=== PATIENT | female | born 2000 | race Caucasian/White ===

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

== ENCOUNTER 2019-04-01 23:43 | Inpatient (IN) | payer OTHER ==
[2019-04-02] MEDS: SOD CHLORIDE 0.9% 1,000 ML IV (01:20)
[2019-04-02] MEDS: ONDANSETRON 4 MG INJ IV ×2 (01:20→14:37)
[2019-04-02] MEDS: LACTATED RINGER'S 690 ML IV (01:54)
[2019-04-02] MEDS ORDERED: DEXTROSE 50% 50 ML SYRINGE IV ×6 (02:00→18:30)
[2019-04-02] MEDS: NS + KCL 30 MEQ 1,000 ML IV (02:52)
[2019-04-02] MEDS: INSULIN REGULAR, HUMAN 100 UNIT in SOD CHLORIDE 0.9% 100 ML IV ×2 (02:52→14:55)
[2019-04-02] MEDS ORDERED: SOD CHLORIDE 0.9% 1,000 ML IV (03:00)
[2019-04-02] MEDS ORDERED: D10/0.45% NACL + KCL 40 MEQ 1,000 ML IV (03:00)
[2019-04-02] MEDS ORDERED: MAGNESIUM SULFATE 1 GM/D5W 100 ML IVPB (03:00)
[2019-04-02] MEDS: ACCU-CHEK XX ×17 (03:00→18:00)
[2019-04-02] MEDS ORDERED: DEXTROSE 10%/0.45% NACL 1,000 ML IV (03:00)
[2019-04-02] MEDS ORDERED: NS + KCL 40 MEQ 1,000 ML IV (03:00)
[2019-04-02] MEDS ORDERED: D10/0.45% NACL + KCL 30 MEQ 1,000 ML IV (03:00)
[2019-04-02] MEDS ORDERED: SODIUM PHOSPHATE 15 MMOL in SOD CHLORIDE 0.9% 250 ML IV (03:00)
[2019-04-02] MEDS ORDERED: NS + KCL 30 MEQ 1,000 ML IV (03:00)
[2019-04-02] MEDS: D10/0.45% NACL + KCL 30 MEQ 1,000 ML IV ×2 (03:00→13:21)
[2019-04-02] MEDS: ACETAMINOPHEN 325 MG TAB PO (03:06)
[2019-04-02] MEDS: INSULIN GLARGINE [LANTus] (100 UNITS/ML) SYG SC ×2 (08:14→19:48)
[2019-04-02] MEDS: SODIUM PHOSPHATE 30 MMOL in SOD CHLORIDE 0.9% 250 ML IV (08:55)
[2019-04-02] MEDS: MAGNESIUM SULFATE 2 GM/50 ML 50 ML IVPB (10:03)
[2019-04-02] MEDS: POTASSIUM CHLORIDE (SR) 20 MEQ TAB PO (14:29)
[2019-04-02] MEDS ORDERED: GLUCOSE GEL 15 GRAM TUBE BUCCAL (18:30)
[2019-04-02] MEDS ORDERED: GLUCOSE GEL 15 GRAM TUBE PO ×2 (18:30)
[2019-04-02] MEDS ORDERED: GLUCAGON 1 MG INJ IM (18:30)
[2019-04-02] MEDS: INSULIN ASPART [NOVOLOG] 3 ML PEN SC ×3 (19:49→23:10)
[2019-04-02] MEDS: POTASSIUM PHOSPHATE 40 MEQ in SOD CHLORIDE 0.9% 250 ML IVPB (19:56)
[2019-04-03] MEDS: ACCU-CHEK XX (01:16)
[2019-04-03] MEDS: LEVOTHYROXINE 25 MCG TAB PO (06:46)
[2019-04-03] MEDS: POTASSIUM CHLORIDE (SR) 20 MEQ TAB PO (07:38)
[2019-04-03] MEDS: INSULIN ASPART [NOVOLOG] 3 ML PEN SC ×2 (07:41→07:42)
[2019-04-03] MEDS: INSULIN GLARGINE [LANTus] (100 UNITS/ML) SYG SC (08:15)
== END 2019-04-03 11:00 | disposition home or self-care (01) | DRG 639 ==
LOC: E/R 23:43 → ICU 04-02 02:59
DX: E10.10 Type 1 diabetes mellitus with ketoacidosis without coma (principal); E03.9 Hypothyroidism, unspecified; Z91.19 Patient's noncompliance with other medical treatment and regimen
CPT/HCPCS: 36415; 80048; 81001; 81025; 82803; 82962; 83036; 83735; 84100; 85025; 87081; 96361; 96374; 96375; 99285-25